=== PATIENT | female | born 1980 | race Caucasian/White ===

== ENCOUNTER 2017-01-14 10:36 | Day surgery (SDC) | payer OTHER ==
[2017-01-13 17:28] VITALS: Ht 152.4 cm; Wt 65.0 kg
[2017-01-14] VITALS (22 sets, daily range): BP systolic 79–107; BP diastolic 46–63; PULSE 56–116; RESP 4–22
[~2017-01-14] VITALS: Ht 152.4 cm; Wt 65.0 kg
[~2017-01-14 10:36] MED LIST: LACTATED RINGER'S 1,000 ML IV SCH
[2017-01-14 11:39] LABS: ADD SCAN DIFF NO
[2017-01-14 11:42] LABS: BASOPHILS % 0.5 % (0.0-2.0); EOSINOPHILS # 0.1 10^3/ul (0.0-0.5); HEMATOCRIT 36.6 % (37.0-47.0); HEMOGLOBIN 12.1 g/dl (12.0-16.0); LYMPHOCYTES # 2.7 10^3/ul (0.8-2.9); LYMPHOCYTES % 34.4 % (15.0-51.0); MEAN CORPUSCULAR HEMOGLOBIN 30.9 pg (29.0-33.0); MEAN CORPUSCULAR HGB CONC 33.1 g/dl (32.0-37.0); MEAN CORPUSCULAR VOLUME 93.4 fl (82.0-101.0); MEAN PLATELET VOLUME 8.7 fl (7.4-10.4); MONOCYTE # 0.5 10^3/ul (0.3-0.9); MONOCYTES % 5.9 % (0.0-11.0); NEUTROPHIL # 4.6 10^3/ul (1.6-7.5); NEUTROPHILS % 57.8 % (39.0-77.0); PLATELET COUNT 365 10^3/UL (140-415); RED BLOOD COUNT 3.92 10^6/ul (4.20-5.40); RED CELL DISTRIBUTION WIDTH 12.2 % (11.5-14.5)
[2017-01-14 12:03] LABS: INR 1.07; PROTIME 13.9 Sec (12.2-14.2); PT RATIO 1.1
[2017-01-14 12:04] LABS: PARTIAL THROMBOPLASTIN TIME 30.9 Sec (25.0-35.0)
[2017-01-14 12:06] LABS: CALCIUM 8.8 mg/dl (8.4-10.2); CREATININE 0.98 mg/dl (0.44-1.00)
[2017-01-14] MEDS ORDERED: GLYCOPYRROLATE 0.4 MG INJ ONE ×2 (12:21→13:31)
[2017-01-14] MEDS ORDERED: ROCURONIUM 50 MG INJ ONE (12:21)
[2017-01-14] MEDS ORDERED: LIDOCAINE 2% (SDV) 5 ML INJ ONE (12:21)
[2017-01-14] MEDS ORDERED: MEPERIDINE 100 MG INJ ONE (12:21)
[2017-01-14] MEDS ORDERED: PROPOFOL 20 ML ONE (12:21)
[2017-01-14] MEDS ORDERED: NEOSTIGMINE 3 MG/3 ML SYRINGE ONE (12:21)
[2017-01-14] MEDS ORDERED: SUCCINYLCHOLINE CHLORIDE 100 MG/5 ML SYG IV ONE (12:21)
[2017-01-14] MEDS ORDERED: ONDANSETRON 4 MG INJ ONE (12:24)
[2017-01-14] MEDS ORDERED: METOCLOPRAMIDE 10 MG INJ ONE (12:24)
[2017-01-14] MEDS ORDERED: CLINDAMYCIN 900 MG/D5W (PMX) 50 ML IVPB ONE (12:24)
--- NOTE | 2017-01-14 12:24 | PREOPHP ---
DATE OF ADMISSION: 01/14/2017 HISTORY OF PRESENT ILLNESS: The patient is a 36-year-old 1, para 1 with longstanding painfu l intercourse. It occurs either with intercourse or immediately afterwards for many years. The sharon n was improved somewhat after having her child and come about with a change in position during inter course, but will always be at the end, sometimes very severely. Not equated with orgasms and neithe r she nor her spouse are clear if it is related to deeper penetration and cervical contact. She did have pelvic inflammatory disease or PID at age 22. The patient had been scheduled for diagnostic l aparoscopy for this issue when she found out she was with her daughter and that was 3 years ago. On ultrasound, the patient has normal uterus, right ovarian cyst measuring 3.8 x 5.7, unilocu lar in nature. The left ovary is not seen on vaginal or abdominal views. The patient had a CT scan which showed a normal uterus, a cyst on the right side, and though no left-sided adnexal mass or pe lvic lymphadenopathy is seen, nothing else was specifically seen. Of note, the patient had breast c ancer in 2011, triple-negative. She had bilateral mastectomy and chemotherapy to follow. She then got after that and had a baby in 2015, a daughter. She got on her own, but she do es have frozen and fertilized eggs, which did prior to chemo and prior to getting together with her spouse. PAST SURGICAL HISTORY: Mastectomy. ALLERGIES: PENICILLIN. PHYSICAL EXAMINATION: HEART: Regular rate and rhythm. LUNGS: Clear to auscultation. ABDOMEN: Soft, nontender, gravid. PELVIC: Uterus normal size. Adnexa nontender. No edema. I cannot elicit the pain with intercours e on an exam. EXTREMITIES: Nontender, no edema. ASSESSMENT: 1. Longstanding dyspareunia. 2. Right ovarian cyst. PLAN: Diagnostic laparoscopy, right ovarian cystectomy, possible lysis of adhesions. Dictated By: CHARLIE VIGIL/SHILO Conf#: [id number] DID#: [id number]
[2017-01-14] MEDS ORDERED: ONDANSETRON 4 MG INJ IV PRN (12:30)
[2017-01-14] MEDS ORDERED: DIPHENHYDRAMINE 50 MG INJ IV PRN (12:30)
[2017-01-14] MEDS ORDERED: METOCLOPRAMIDE 10 MG INJ IV PRN (12:30)
[2017-01-14] MEDS ORDERED: MIDAZOLAM 1 MG/ML 2 ML INJ IV PRN (12:30)
[2017-01-14] MEDS ORDERED: MEPERIDINE 25 MG INJ IV PRN (12:30)
[2017-01-14] MEDS ORDERED: FENTAnyl 50 MCG/ML VIAL IV PRN (12:30)
[2017-01-14] MEDS ORDERED: HYDROmorphONE (0.2 MG/ML) 10ML SYG IV PRN (12:30)
[2017-01-14] MEDS ORDERED: EPHEDrine SULFATE 50 MG/5 ML SYG IV PRN (12:30)
[2017-01-14] MEDS ORDERED: hydrALAzine 20 MG INJ IV PRN (12:30)
[2017-01-14] MEDS ORDERED: morphine (1 MG/ML) 10ML SYRINGE IV PRN ×2 (12:30)
[2017-01-14] MEDS ORDERED: LABETALOL HCL 20MG INJ IV PRN (12:30)
[2017-01-14] MEDS ORDERED: BUPIVACAINE 0.25% (MPF) 30 ML INJ ONE (14:00)
[2017-01-14] MEDS ORDERED: EPHEDrine SULFATE 50 MG/5 ML SYG ONE (14:17)
[2017-01-14] MEDS: HYDROmorphONE (0.2 MG/ML) 10ML SYG IV PRN ×3 (14:40→15:58)
[2017-01-14] MEDS: FENTAnyl 50 MCG/ML VIAL IV PRN ×4 (15:05→15:37)
--- NOTE | 2017-01-15 09:24 | OPR ---
DATE OF OPERATION: 01/14/2017 PREOPERATIVE DIAGNOSES: 1. Left abdominal pain. 2. Right ovarian cyst. 3. Dyspareunia. POSTOPERATIVE DIAGNOSES: 1. Left the pelvic adhesions. 2. Right paratubal cyst. 3. Left ovarian functional cyst. PROCEDURE: Laparoscopy, lysis of adhesions, right paratubal cystectomy, and ovarian drilling of the left ovarian cyst, without removal. SURGEON: Grant Isbell MD LEATHER CRAFTER: Tamia Oh MD ANESTHESIOLOGIST: Dr. Flores. ANESTHESIA: General. ESTIMATED BLOOD LOSS: 5 mL. COMPLICATIONS: None. PATHOLOGY: Right paratubal cyst only. DESCRIPTION OF PROCEDURE: The patient was brought to the operating room, placed on the operating ro om table and was placed under general anesthesia. Her legs were placed in laparoscopy stirrups. A Napoles catheter was placed and she was prepped and draped in the usual sterile fashion. A sponge sti ck was placed in the vaginal vault. A knife was used to incise the infraumbilical area and a 5-mm t rocar was placed and the abdomen was insufflated to 15 mmHg. A camera was placed and the patient wa s placed in Trendelenburg position. There were adhesions in the left abdomen between the side wall and the bowel, pulling the bowel into a sharp corner. Placed 2 other trocars in the left and right lower abdomen, both 5-mm trocars. Elevated the uterus with a probe. Could visualize both ovaries. The right ovary was very normal. No cysts apparent at all. The tube was also very normal. Both o varies were tucked behind the uterus. The left ovary was elevated and there were 2 prominent cysts that were large. The tube also appeared very normal, without any adhesions. Initially the adhesions between the bowel and the left sidewall were taken down, grasping with blunt graspers the bowel and pulling on it and releasing the adhesions from that sidewall. The bowel was in a more normal posit ion. Applied cautery to the sidewall due to only minimal bleeding present. Then inserted a piece o f Interceed, unrolled it and laid it against the side wall in position and tucked the bowel back aga inst it to keep it from re-sticking to that area. Then grasped the left ovary, cauterized, opened a nd drained the 2 cysts that were present, with the release of fluid. There was no bleeding noted af terwards. The right paratubal cyst was grasped. The stalk was cauterized close to the tube and the cyst was then placed above the uterus, grasped and ruptured with cautery and then removed through t he 5-mm trocar. The pelvis was examined afterwards, all noted to be very dry and the procedure was terminated. The 2 lower trocars were removed. The camera was removed and the gas was removed from the belly. When the belly was flat the final trocar was removed. All trocar sites were closed with 3-0 Monocryl in a subcuticular stitch, with excellent tissue approximation and hemostasis. Band- ds were placed overall. The sponge stick was removed from the vaginal vault. The patient was awake percy from general anesthesia. The legs were brought into the full supine position. The patient was transported to the recovery room in excellent condition, having tolerated the procedure well. Of no te, injectable local anesthetic was placed in all ports sites. Dictated By: GRANT VIGIL/SHILO Conf#: [id number] DID#: [id number]
== END 2017-01-14 17:18 | disposition home or self-care (01) ==
LOC: SDS 10:36
PROVIDERS: ATTEND Obstetrics & Gynecology
DX: N83.8 Other noninflammatory disorders of ovary, fallopian tube and broad ligament (principal); N83.202 Unspecified ovarian cyst, left side
CPT/HCPCS: 58662; 80048; 84703; 85025; 85610; 85730; J0330; J1170; J1200; J2175; J2405; J2710; J2765; J3010

== ENCOUNTER 2017-03-18 14:37 | Emergency (ER) | payer OTHER ==
[~2017-03-18] VITALS: Ht 172.7 cm; Wt 69.5 kg
[2017-03-18 14:41] VITALS: Ht 172.7 cm; Wt 69.5 kg
--- NOTE | 2017-03-18 15:15 | ERD ---
ER Documentation Chief Complaint Date/Time DATE: 03/18/17 TIME: 15:13 Chief Complaint Sent from MD for eval and EKG. HPI This 36-year-old female presents with a referral from her psychiatrist for an EKG. She has a history of PTSD and anxiety. She takes Concerta and Valium as needed. She denies any current chest pain shortness of breath but she was referred by her psychiatrist. ROS All systems reviewed and are negative except as per history of present illness. Allergies Allergies: Coded Allergies: Penicillins (Verified Allergy, Unknown, 03/18/17) PMhx/Soc History of Surgery: Yes (bilat mastectomy, lymph node removal, reconstructive surg, lasik) Anesthesia Reaction: No Hx Neurological Disorder: No Hx Respiratory Disorders: No Hx Cardiac Disorders: No Hx Psychiatric Problems: No Hx Miscellaneous Medical Probl: Yes (breast ca) Hx Alcohol Use: No Hx Substance Use: No Hx Tobacco Use: No Smoking Status: Never smoker Physical Exam Vitals Vital Signs Date Time Temp Pulse Resp B/P Pulse Ox O2 Delivery O2 Flow Rate FiO2 03/18/17 14:41 98.3 86 20 139/88 98 Physical Exam Const: [] Pleasant, [id number]. Head: Atraumatic Eyes: Normal Conjunctiva ENT: Normal External Ears, Nose and Mouth. Neck: Full range of motion..~ No meningismus. Resp: Clear to auscultation bilaterally Cardio: Regular rate and rhythm, no murmurs Abd: Soft, non tender, non distended. Normal bowel sounds Skin: No petechiae or rashes Back: No midline or flank tenderness Ext: No cyanosis, or edema Neur: Awake and alert Psych: Normal Mood and Affect Procedures/MDM EKG: Rate/Rhythm: [Normal Sinus Rhythm] QRS, ST, T-waves: [No changes consistent w/ acute ischemia] Impression: [No evidence of ischemia or arrhythmia]. Impression-no acute findings on EKG Patient presents with a referral for an EKG without signs or symptoms of acute coronary syndrome, pulmonary medicine, arrhythmias, additional acute abnormalities. She will discharged home with primary care and psychiatry follow -up as scheduled. The patient was stable with no new complaints during the ER course. Clinically, there is no current evidence to suggest meningitis, sepsis, acute abdomen, pneumonia, acute coronary syndrome, pulmonary embolism, or any other emergent condition appearing to require further evaluation or hospitalization. The patient should certainly return for any new or worsening symptoms per the aftercare instructions. They should otherwise follow-up with her primary care doctor for reevaluation this week. Departure Diagnosis: Primary Impression: Anxiety Additional Impression: Encounter for laboratory test Condition: Stable Patient Instructions: Your Body's Response to Anxiety Additional Instructions: No acute findings on exam today. Follow-up with PCP and psychiatrist as scheduled. Recheck otherwise for new or worsening symptoms CHENG MAE MD Mar 18, 2017 15:14
== END 2017-03-18 15:30 | disposition home or self-care (01) ==
LOC: FTE 14:37
DX: F41.9 Anxiety disorder, unspecified (principal); Z85.3 Personal history of malignant neoplasm of breast
CPT/HCPCS: 93005